=== PATIENT | male | born 1990 | race Two or more races ===

== ENCOUNTER → 2024-11-15 | Outpatient (CLI) | payer MEDICAID, SELFPAY ==
--- NOTE | 2024-11-15 15:27 | XR_ITS ---
Examination: Hand, left 3 views Technique: Hand AP, oblique, lateral 3 views Date and time of exam: November 15, 2024 1529 hrs. Indications: Left hand pain and swelling beginning 4 days ago Findings: No acute fracture. No foreign body. No cortical bone destruction Impression: No acute fracture
== END | disposition home or self-care (01) ==
LOC: CDIM 15:09
PROVIDERS: Referring Provider Nurse Practitioner; Visit Provider Nurse Practitioner
DX: M79.642 Pain in left hand (principal)
CPT/HCPCS: 73130

== ENCOUNTER 2025-08-03 00:30 | Emergency (ER) | payer SELFPAY ==
[2025-08-03 00:39] VITALS: BP 163/95; PULSE 110; RESP 18; TEMP 37; O2SAT 95; BMI 29.9
--- NOTE | 2025-08-03 00:49 | PD.EDALCOH ---
ED Alcohol RME/HPI General Chief Complaint: Shortness of Breath/Dyspnea Stated Complaint: DIFF BREATHING Time Seen by Provider: 08/03/25 00:47 Arrival date/time: 08/03/25 00:30 35M with history of asthma presents to ED with several hours of SOB, anxiety, and sweating. Patient drank two bottles of tequila yesterday and did some cocaine as well. Patient denies URI symptoms. Limitations: no limitations Related Data Previous Rx's ?Medication ?Instructions ?Recorded prednisone 20 mg tablet 20 mg PO BID #6 tabs 12/25/18 azithromycin 500 mg tablet See Rx Instructions PO .COMPLEX #6 03/01/22 tabs ondansetron 4 mg disintegrating 4 mg PO Q8H PRN nausea and 03/01/22 tablet vomiting #10 tabs promethazine-DM 6.25 mg-15 mg/5 mL 5 ml PO Q6H PRN cough #473 mL 03/01/22 oral syrup Allergies Allergy/AdvReac Type Severity Reaction Status Date / Time No Known Allergies Allergy Verified 08/03/25 00:31 Review of Systems Review of Systems Systems Reviewed: All systems reviewed, normal except as documented Cardiovascular Cardiovascular: Reports dyspnea Respiratory Respiratory: Reports as per HPI and Reports dyspnea Neurologic Neurologic: Reports as per HPI and Reports tremor(s) Psychiatric Psychiatric: Reports as per HPI and Reports anxiety Past Medical History Past Medical History CARDIAC: Negative Congestive Heart Failure RESPIRATORY: Negative Chronic Obstructive Pulmonary Disease (COPD) GENITOURINARY: Negative Renal Disease ENDOCRINE: Negative Diabetes Mellitus Type 1 or Diabetes Mellitus Type 2 Social History SMOKING STATUS: Never smoker ED Exam General Limitations: Present no limitations General appearance: Present alert and anxious Head Head exam: Present atraumatic Eye Eye exam: Present PERRL and EOMI Expanded Eye Exam Pupils: Bilateral: size (mildly dilated) Neck Neck exam: Present normal inspection, full ROM and trachea midline Chest Chest inspection: Present normal inspection and symmetric chest wall rise Respiratory Respiratory exam: Present normal lung sounds bilaterally Neurological Exam Neurological exam: Present alert and oriented X3 Psychiatric Psychiatric exam: Present normal affect and anxious Skin Skin exam: Present warm, dry, intact and normal color Course Quality Measures none Orders Category Date Time Status Dexamethasone Inj [Decadron Inj] Med 08/03/25 00:47 Discontinued 10 mg PO X1 ONE Diazepam [Valium] Med 08/03/25 00:47 Discontinued 10 mg PO X1 ONE Vital Signs Vital signs: Vital Signs Temperature 98.6 F 08/03/25 00:39 Pulse Rate 110 H 08/03/25 00:39 Respiratory Rate 18 08/03/25 00:39 Blood Pressure 163/95 H 08/03/25 00:39 Pulse Oximetry (%) 95 08/03/25 00:39 Oxygen Delivery Method Room Air 08/03/25 00:39 O2 at 95% on RA and WNLs Discharge Plan Plan Patient Disposition: Elopement Prescriptions/Referrals Prescriptions/Med Rec: No Action promethazine-DM 6.25-15 mg/5 mL syrup 5 ml PO Q6H PRN (Reason: cough) Qty: 473 0RF ondansetron 4 mg tablet,disintegrating 4 mg PO Q8H PRN (Reason: nausea and vomiting) Qty: 10 0RF azithromycin 500 mg tablet See Rx Instructions .ROUTE .COMPLEX Qty: 6 0RF Rx Instructions: take 500 mg today (day 1), then 250 mg for 4 days (days 2-5) prednisone 20 mg tablet 20 mg PO BID Qty: 6 0RF Referrals: No Primary/Family,Physician [Primary Care Provider] - In 1 week Problem List Clinical Impression: Alcohol withdrawal, Drug use Patient/Caregiver Discharge Instructions Print Language: Cymro PA/[employer] Supervising Physician PA/[employer] Supervising Physician: Dr. Restrepo Alcohol [facility] Narrative MDM Narrative: 35M with history of asthma presents to ED with several hours of SOB, anxiety, and sweating. Patient drank two bottles of tequila yesterday and did some cocaine as well. Patient denies URI symptoms. Physical exam reveals clear lungs and normal WOB. Mildly dilated but still reactive pupils. Slight tremor. Patient is afebrile, calm, but anxious. Patient eloped. Patient data External records reviewed:: [facility] previous records Clinical information provided by:: patient Social determinants that could affect healthcare access:: substance use Patient has the following chronic illnesses:: asthma How is presenting disease/condition affected by chronic disease/condition?: exacerbated by Evaluation data The following diagnostics were reviewed and interpreted by me:: other (specify) (none) Lab and/or radiology exams considered but not ordered:: not ordered Interpretation Summary: n/a Medications / Prescriptions Medications or Prescriptions considered but not ordered:: ordered Medication administrations:: Medication Administration History Discontinued Medications Dexamethasone Sodium Phosphate (Dexamethasone Sod Phos Inj 10 Mg/Ml Vial) 10 mg PO X1 ONE Stop: 08/03/25 00:48 Last Admin: 08/03/25 00:56 Dose: 10 mg Documented By: JARET Diazepam (Diazepam 5 Mg Tablet) 10 mg PO X1 ONE Stop: 08/03/25 00:48 Last Admin: 08/03/25 00:54 Dose: 10 mg Documented By: JARET above Consultations Consultation(s) initiated? (list below): No Diagnosis Differential diagnosis alcohol: alcohol withdrawal delirium, hypomagnesemia, alcohol intoxication, alcohol ketoacidosis, alcohol withdrawal syndrome, alcohol withdrawal seizure and other (alcohol withdrawal and drug use) Most likely diagnosis given after review of the tests above:: alcohol withdrawal and drug use Admission Indicated Admission indicated?: not indicated Admission Request Was there a request for admission?: No Disposition Plan Disposition Plan: other (specify) (eloped)
[2025-08-03] MEDS: DIAZEPAM 5 MG TABLET 10 MG PO (00:54)
[2025-08-03] MEDS: DEXAMETHASONE SOD PHOS INJ 10 MG/ML VIAL PO (00:56)
== END 2025-08-03 02:23 | disposition left against medical advice (07) ==
PROVIDERS: Emergency Provider Emergency Medicine
DX: F10.239 Alcohol dependence with withdrawal, unspecified (principal); F19.90 Other psychoactive substance use, unspecified, uncomplicated
CPT/HCPCS: 99281; J1100; A9270